=== PATIENT | female | born 1985 ===

== ENCOUNTER 2023-05-05 20:12 | Emergency (ER) | payer OTHER, SELFPAY ==
[2023-05-05] MEDS ORDERED: Ibuprofen 200 MG TAB ONE ×2 (21:06→21:10)
[2023-05-05] MEDS ORDERED: Boostrix 0.5 ML (Tdap) VIAL (>/=7 yrs of age) ONE (22:28)
== END 2023-05-05 23:00 | disposition home or self-care (01) ==
LOC: CSHERS 20:12
DX: S16.1XXA Strain of muscle, fascia and tendon at neck level, initial encounter (principal); F17.290 Nicotine dependence, other tobacco product, uncomplicated; V49.40XA Driver injured in collision with unspecified motor vehicles in traffic accident, initial encounter
CPT/HCPCS: 90471; 90715

== ENCOUNTER 2024-05-27 08:18 | Outpatient (CLI) | payer OTHER | END 2024-05-27 08:19 | disposition home or self-care (01) | LOC: CSHULT 08:18 | PROVIDERS: ATTEND Family Medicine | DX: R10.11 Right upper quadrant pain (principal); R19.8 Other specified symptoms and signs involving the digestive system and abdomen | CPT/HCPCS: 76705 ==